=== PATIENT | male | born 1985 | race Caucasian/White ===

== ENCOUNTER 2023-09-04 11:56 | Day surgery (SDC) | payer OTHER ==
[~2023-09-04] VITALS: Ht 170.2 cm; Wt 90.2 kg
[~2023-09-04 11:56] MED LIST: LR 1,000 ML IV SCH
[2023-09-04 12:14] VITALS: BP 150/99; PULSE 72; TEMP 97.2
[2023-09-04] MEDS ORDERED: LEVAQUIN 5500 MG/TA1 PO (12:25)
[2023-09-04] MEDS ORDERED: fentaNYL 50 MCG/ML 2 ML VIAL ONE ×2 (13:50→14:21)
[2023-09-04] MEDS ORDERED: Lidocaine PF 2% (20 MG/ML) 5 ML VIAL ONE (13:50)
[2023-09-04] MEDS ORDERED: Ondansetron 4 MG/2 ML VIAL ONE (14:10)
[2023-09-04] MEDS ORDERED: dexAMETHasone 10 MG/ML VIAL ONE (14:10)
[2023-09-04] MEDS ORDERED: Bacitracin Topical Oint 30 GM TUBE TOP ONE (14:20)
[2023-09-04] MEDS ORDERED: Labetalol 100 MG/20 ML Multi-Dose VIAL ONE (14:29)
[2023-09-04] MEDS ORDERED: fentaNYL 50 MCG/ML 2 ML VIAL IV PRN (14:30)
[2023-09-04] MEDS ORDERED: Meperidine 50 MG/ML 1 ML VIAL IV PRN (14:30)
[2023-09-04] MEDS ORDERED: droPERidol 2.5 MG/ML 2 ML VIAL IV PRN (14:30)
[2023-09-04] MEDS ORDERED: Ondansetron 4 MG/2 ML VIAL IV PRN (14:30)
[2023-09-04] MEDS ORDERED: HYDROmorphone 2 MG/1 ML VIAL IV PRN (14:30)
[2023-09-04] MEDS ORDERED: PERCOCET 325 MG1 TA2 PO (15:03)
[2023-09-04] MEDS ORDERED: Ketorolac 30 MG/ML VIAL ONE (15:13)
[2023-09-04] MEDS ORDERED: fentaNYL 50 MCG/ML 2 ML VIAL IV ONE ×2 (15:24→15:30)
[2023-09-04 15:55] VITALS: BP 142/93; PULSE 70; TEMP 97.2
[2023-09-04 16:10] VITALS: BP 127/85; PULSE 63
--- NOTE | 2023-09-04 16:45 | NUR ---
1555-PT TO BAY 8 PER CART FROM PACU. REPORT RECEIVED. VS OBTAINED. CALL LIGHT WITHIN REACH. BED IN LOW POSITION AND SIDE RAILS UP X2. PT DENIES ANY NEEDS AT THIS TIME. 1600-PT TOLERATING WATER WITHOUT DIFFICULTY. 1615-PT RESTING COMFORTABLY. 1625-IV DC'D AT THIS TIME. 1630-DISCHARGE EDUCATION COMPLETED WITH PT AND HIS . ALL QUESTIONS ANSWERED. DISCHARGE PAPERWORK GIVEN TO PT. 1635-PT DRESSED SELF WITHOUT ASSISTANCE. 1645-PT OFF UNIT PER WHEELCHAIR. PT DISCHARGED TO HOME WITH PER PERSONAL VEHICLE.
[2023-09-04 19:36] VITALS: BP 141/82; PULSE 68; TEMP 97
== END 2023-09-04 16:45 | disposition home or self-care (01) ==
LOC: SDCO 11:56
DX: N43.0 Encysted hydrocele (principal); F43.10 Post-traumatic stress disorder, unspecified; Z87.891 Personal history of nicotine dependence; Z79.899 Other long term (current) drug therapy
CPT/HCPCS: J0665; J0690; J1100; J1885; J1920; J2405; J2704; J3010; J7120